=== PATIENT | female | born 1940 | race Caucasian/White ===

== ENCOUNTER → 2016-10-28 | Outpatient (CLI) | payer MEDICARE ==
[~2016-10-28] MED LIST: CENTTAB PO; MIRA33504 PO; VITA10002 PO
[2016-10-28 12:58] LABS: FREE T4 1.02 NG/DL (0.76-1.46)
[2016-10-28 13:18] LABS: RAPID PLASMA REAGIN SCREEN NON-REACTIVE (NON-REACTVE)
[2016-10-29 11:29] LABS: ANA SCREEN POS (NEG)
[2016-11-01 19:56] LABS: VITAMIN B6 49.2 ng/mL (2.1-21.7)
== END ==
LOC: ELAB 11:11
PROVIDERS: ATTEND Psychiatry & Neurology Neurology
DX: E53.8 Deficiency of other specified B group vitamins (principal); R94.6 Abnormal results of thyroid function studies; D52.9 Folate deficiency anemia, unspecified; E53.9 Vitamin B deficiency, unspecified; R77.9 Abnormality of plasma protein, unspecified; R70.0 Elevated erythrocyte sedimentation rate; R76.0 Raised antibody titer
CPT/HCPCS: 36415; 82607; 82746; 83921; 84207; 84425; 84439; 84443; 86038; 86039; 86592